=== PATIENT | female | born 1950 | race Caucasian/White ===

== ENCOUNTER 2024-04-24 06:06 | Inpatient (IN) | payer BC, SELFPAY ==
[2024-04-24] VITALS (20 sets, daily range): BP systolic 103–158; BP diastolic 52–113; BMI 29.6; BMI 30.6
--- NOTE | 2024-04-24 03:40 | ED.GENMED ---
History of Present Illness
<Yamilka Allen DO - Last Filed: 04/24/24 06:12>
General
Chief Complaint: Abdominal Pain
Time Seen by Provider: 04/24/24 03:18
<DERICK Victor (Lenka) - Last Filed: 04/24/24 03:58>
General
Source: patient and spouse
Exam Limitations: none
Nursing documentation reviewed up to this point in time: agreed with
History of Present Illness
History of Present Illness:
Pt is a 73 yo female with PMHx of IDDM, hypothyroidism, breast cancer, HTN, GERD who presents to the ED with sudden onset mid-abdominal pain since 'dinner time' on 04/23/24, about 8 hours. Pt reports right around the time she was eating dinner she
developed sudden severe sharp abdominal pain that she localizes to her mid-abdomen. It radiates to all four quadrants and is constant in nature. The pain is unchanged with changes in position. She developed nausea and NBNB emesis. Reports that her
stools have been soft and formed, dark brown all day. No constipation or diarrhea. She denies chest pain, esophageal burning, back pain, shoulder pain, dyspnea, pelvic pain.
Hx of 2 C-sections in 1979's
Hx of panniculectomy
Hx of back surgery 11/2023 - controlled with tylenol and THC gummies
Social alcohol use. No smoking
No recent travel
No sick contacts
No new foods
Past History
<DERICK Victor (Lenka) - Last Filed: 04/24/24 03:58>
Past History
ED Past Medical History: Cancer (R breast), GERD, HTN, IDDM and Hypothyroidism
ED Past Surgical History: (1981 and 1982), Orthopedic (back (11/2023), shoulder, L foot (pin in 12/2005)) and Other (Breast cancer removal)
Social History
Tobacco: Non-smoker
Alcohol: Occasional
Drug: Marijuana (medical THC gummies)
Personal:
Living: with family
Phy Exam
<DERICK Victor (Lenka) - Last Filed: 04/24/24 03:58>
General Physical Exam
General Presentation: moderate distress (pt anxious, restless, visibly uncomfortable in bed)
General age: appears stated age
General Skin: warm and dry
General Habitus: obese
General Mental: anxious
Cardiovascular Exam
Cardiovascular Exam: regular rate/rhythm, no edema and tachycardia
Pulmonary Exam
Pulmonary Exam: lungs clear, no respiratory distress, no rales, no rhonchi, no wheezing and no cough
Gastrointestinal Exam
Gastrointestinal Exam: normal bowel sounds, soft, non distended, guarding (all 4 quadrants, worse in upper quadrants), tender and other
Palpation: generalized: Moderate tenderness (all 4 quadrants)
Psychiatric Exam
Psychiatric Exam: anxious
Course
<Yamilka Allen DO - Last Filed: 04/24/24 06:12>
Orders/Labs/Results
Orders:
Orders
04/24/24 03:32
IV Insert/Care/Rem.- Treatment PRN
04/24/24 03:34
Complete Blood Count/With Diff Urgent
Comprehensive Metabolic Panel Urgent
Lipase Urgent
04/24/24 03:37
Urinalysis Reflex To Culture Urgent
04/24/24 03:42
Lactic Acid Urgent
04/24/24 03:43
0.9% Sodium Chloride 1000 ml [Nss] 1,000 ml IV BOLUS
HYDROmorphone [Dilaudid] 0.5 mg IV NOW STA
Ondansetron Injectable [Zofran] 4 mg IV NOW STA
04/24/24 04:11
CT Abd/pelvis W Iv Cont Urgent
Comment:
Reason For Exam: severe gen abd pain, N/V
04/24/24 04:18
0.9% Sodium Chloride 1000 ml [Nss] 1,000 ml IV BOLUS
04/24/24 04:21
Electrocardiogram (*1) Urgent
Reason for Study: Abdominal Pain
EKG- Treatment ONCE
04/24/24 04:22
HYDROmorphone [Dilaudid] 0.5 mg IV NOW STA
Ondansetron Injectable [Zofran] 4 mg IV NOW STA
04/24/24 05:44
CR Chest Portable - 1 View Urgent
Comment:
Reason For Exam: acute SOB, hypoxia
Reason Study Needs to be Portable: Patient Unstable
04/24/24 05:53
Admit/Transfer Patient As Directed
Co-Sign Provider:
Level of Care: Inpatient admission
Assign to:: IMU- Intermediate Care
Physician / Group: htay
Diagnosis: abdominal pain plus nausea and NBNB emesis,SIRS picture,Anion gap MA
Reason for Hospitalization: abdominal pain plus nausea and NBNB emesis,SIRS picture,Anion gap MA
Expected length of stay greater than two midnights?: Yes
ELOS- Estimated Length of Stay in days: 3
I certify the patient meets the requirements for IP care: Yes
Piperacillin/Tazo 3.375 Gram [Zosyn] 3.375 gram in 50 ml IV NOW
04/24/24 05:58
Code Status As Directed
Resuscitation Status: Full Code
04/24/24 07:15
Lactic Acid Urgent
Abnormal Lab Results
04/24/24 04/24/24
03:34 03:42
WBC 11.0 H 10^3/uL
(4.8-10.8)
RBC 3.69 L 10^6/uL
(4.20-5.40)
Hgb 11.7 L g/dL
(12.0-16.0)
Hct 33.7 L %
(37.0-47.0)
MCH 31.7 H pg
(27.0-31.0)
MPV 11.0 H fL
(7.4-10.4)
Abs Immat Gran (auto) 0.1 H 10^3/uL
(0-0.05)
Absolute Neuts (auto) 9.3 H 10^3/uL
(1.4-6.5)
Immature Gran % 0.7 H %
(0-0.5)
Neutrophils % 84.4 H %
(42.2-75.2)
Lymphocytes % 11.5 L %
(20.5-51.1)
Carbon Dioxide 17 L mmol/L
(22-30)
BUN 19 H mg/dl
(7-17)
Creatinine 1.1 H mg/dL
(0.6-1.0)
Glucose 329 H mg/dl
(70-99)
Lactic Acid 5.6 H* mmol/L
(0.7-2.0)
Calcium 10.6 H mg/dl
(8.4-10.2)
AST 42 H U/L
(14-36)
04/24/24 03:34
04/24/24 03:34
Vital Signs
Initial and Last Documented VS:
Initial Vital Signs
Temp Pulse Resp BP Pulse Ox
98.2 F 112 28 150/70 98
04/24/24 03:13 04/24/24 03:13 04/24/24 03:13 04/24/24 03:13 04/24/24 03:13
Last Documented Vital Signs
Temp Pulse Resp BP Pulse Ox
98.2 F 107 17 150/65 93
04/24/24 03:13 04/24/24 04:30 04/24/24 04:30 04/24/24 04:00 04/24/24 04:30
<Kimberli Souza (Lenka), DERICK - Last Filed: 04/24/24 03:58>
Orders/Labs/Results
Orders:
Orders
04/24/24 03:32
IV Insert/Care/Rem.- Treatment PRN
04/24/24 03:34
Complete Blood Count/With Diff Urgent
Comprehensive Metabolic Panel Urgent
Lipase Urgent
04/24/24 03:37
Urinalysis Reflex To Culture Urgent
04/24/24 03:42
Lactic Acid Urgent
04/24/24 03:43
0.9% Sodium Chloride 1000 ml [Nss] 1,000 ml IV BOLUS
HYDROmorphone [Dilaudid] 0.5 mg IV NOW STA
Ondansetron Injectable [Zofran] 4 mg IV NOW STA
04/24/24 04:11
CT Abd/pelvis W Iv Cont Urgent
Comment:
Reason For Exam: severe gen abd pain, N/V
04/24/24 04:18
0.9% Sodium Chloride 1000 ml [Nss] 1,000 ml IV BOLUS
04/24/24 04:21
Electrocardiogram (*1) Urgent
Reason for Study: Abdominal Pain
EKG- Treatment ONCE
04/24/24 04:22
HYDROmorphone [Dilaudid] 0.5 mg IV NOW STA
Ondansetron Injectable [Zofran] 4 mg IV NOW STA
04/24/24 05:44
CR Chest Portable - 1 View Urgent
Comment:
Reason For Exam: acute SOB, hypoxia
Reason Study Needs to be Portable: Patient Unstable
04/24/24 05:53
Admit/Transfer Patient As Directed
Co-Sign Provider:
Level of Care: Inpatient admission
Assign to:: IMU- Intermediate Care
Physician / Group: htay
Diagnosis: abdominal pain plus nausea and NBNB emesis,SIRS picture,Anion gap MA
Reason for Hospitalization: abdominal pain plus nausea and NBNB emesis,SIRS picture,Anion gap MA
Expected length of stay greater than two midnights?: Yes
ELOS- Estimated Length of Stay in days: 3
I certify the patient meets the requirements for IP care: Yes
Piperacillin/Tazo 3.375 Gram [Zosyn] 3.375 gram in 50 ml IV NOW
04/24/24 05:58
Code Status As Directed
Resuscitation Status: Full Code
04/24/24 07:15
Lactic Acid Urgent
Abnormal Lab Results
04/24/24 04/24/24
03:34 03:42
WBC 11.0 H 10^3/uL
(4.8-10.8)
RBC 3.69 L 10^6/uL
(4.20-5.40)
Hgb 11.7 L g/dL
(12.0-16.0)
Hct 33.7 L %
(37.0-47.0)
MCH 31.7 H pg
(27.0-31.0)
MPV 11.0 H fL
(7.4-10.4)
Abs Immat Gran (auto) 0.1 H 10^3/uL
(0-0.05)
Absolute Neuts (auto) 9.3 H 10^3/uL
(1.4-6.5)
Immature Gran % 0.7 H %
(0-0.5)
Neutrophils % 84.4 H %
(42.2-75.2)
Lymphocytes % 11.5 L %
(20.5-51.1)
Carbon Dioxide 17 L mmol/L
(22-30)
BUN 19 H mg/dl
(7-17)
Creatinine 1.1 H mg/dL
(0.6-1.0)
Glucose 329 H mg/dl
(70-99)
Lactic Acid 5.6 H* mmol/L
(0.7-2.0)
Calcium 10.6 H mg/dl
(8.4-10.2)
AST 42 H U/L
(14-36)
04/24/24 03:34
04/24/24 03:34
Vital Signs
Initial and Last Documented VS:
Initial Vital Signs
Temp Pulse Resp BP Pulse Ox
98.2 F 112 28 150/70 98
04/24/24 03:13 04/24/24 03:13 04/24/24 03:13 04/24/24 03:13 04/24/24 03:13
Last Documented Vital Signs
Temp Pulse Resp BP Pulse Ox
98.2 F 107 17 150/65 93
04/24/24 03:13 04/24/24 04:30 04/24/24 04:30 04/24/24 04:00 04/24/24 04:30
<DERICK Victor (Lenka) - Last Filed: 04/24/24 03:58>
MDM/Problems Addressed
Differential Diagnosis Includes:
73 yo female with PMHx of IDDM, hypothyroidism, breast cancer, HTN, GERD presenting with sudden onset mid-abdominal pain x 8 hours. Pt reports right around the time she was eating dinner she developed sudden severe sharp abdominal pain that she
localizes to her mid-abdomen. It radiates to all four quadrants and is constant in nature. The pain is unchanged with changes in position. She developed nausea and NBNB emesis. Reports that her stools have been soft and formed, dark brown all day.
No constipation or diarrhea. She denies chest pain, esophageal burning, back pain, shoulder pain, dyspnea, pelvic pain.
On exam she is more tender in the epigastric region and the upper quadrants.
Vitals: tachycardic, tachypneic, hypertensive
DDx: pancreatitis, cholecystitis, appendicitis
Due to epigastric location of pain, sudden onset with N/V, and onset around mealtime, there is concern for pancreatitis. Appendicitis is less likely due to diffuse radiation of pain and pain located epigastrically/periumbilically.
Will first manage nausea with zofran and pain, then plan for CTAP.
Awaiting CBC, CMP, lactic.
<Yamilka Allen DO - Last Filed: 04/24/24 06:12>
*Radiology
Radiology exam reviewed: preliminary read by ED provider (Chest x-ray shows mild cardiomegaly, mild interstitial edema.) and radiology read reviewed
*Pulse Oximetry
Patient hypoxic: yes
*EKG
Interpreted by ED Provider?: Yes
Comparison EKG: changes noted (Nonspecific ST-T wave abnormalities new compared to previous EKG January 2023. Heart rate has increased from 90 to now 110)
Rate: tachycardiac
Rhythm: sinus
[place]: normal axis
Interval: normal interval
QRS Pattern: normal QRS
Ischemia: non-specific ST changes
*Printer Slotter Operator Interpretation
Rate: tachycardiac
Interpretation: abnormal
Rhythm: sinus
*Critical Care Note
Total Time (30-74mins, 75-104mins- exclusive of procedures): 30
comment:
Critical care statement: A total of 30 minutes of critical care time was provided for this patient. This includes management of unstable vital signs, evaluation of the patient at bedside, reviewing the patient's pertinent medical records, discussion
with consultants, review of old EKGs and review of pertinent medical records. This time with separate from time utilized to perform the aforementioned documented procedures
<DERICK Victor (Lenka) - Last Filed: 04/24/24 03:58>
*Critical Care Note
Total Time (30-74mins, 75-104mins- exclusive of procedures): Not Applicable
ED Attending Note
<Yamilka Allen DO - Last Filed: 04/24/24 06:12>
ED Attending Note
Patient seen and examined by attending physician: Yes
I performed the substantive portion of visit, reviewed & personally made and approve the management plan that is documented in note by myself or BARBARA.: Yes
ED Attending Note:
This is a 73-year-old woman who resides at home with her . She has history of insulin requiring diabetes, hypothyroidism, hypertension, lumbar disc disease, remote history of breast cancer she presents with persistent severe epigastric to
mid abdominal pain that began yesterday afternoon, evening prior to dinner. Pain has been constant and persistent/severe since yesterday early evening accompanied with nausea, multiple episodes of nonbloody vomitus. She has been passing soft
stools throughout the evening, she denies diarrhea. No fever no chills, no back pain no chest pain. No history of similar episodes of pain. No definitive aggravating or relieving factors.
Prior abdominal surgeries include 2 previous C-sections, abdominoplasty.
She states blood sugars are generally well-controlled but have been somewhat higher throughout the day today.
GENERAL: 73-year-old woman appears her stated age, awake and alert, appears in moderate distress related to pain. Mildly anxious, mildly restless but cooperative. is accompanying.
EYE: anicteric
NECK: Supple, nontender, no meningismus, no significant adenopathy.
ENT: oral mucosa is mildly dry. No rhinorrhea.
CARDIAC: Regular rate and rhythm. no murmur.
LUNGS: Clear breath sounds bilaterally, no acute respiratory distress, no wheezes/rales/rhonchi
ABDOMEN: Soft, mildly distended, moderate generalized tenderness with exquisite tenderness epigastric as well as right upper quadrant with local guarding of epigastric and right upper quadrant, positive rebound. No rigidity.
NEUROLOGICAL: Alert and oriented x3, no focal neuro deficits. Ambulatory with slow steady gait utilizing cane.
SKIN: Warm and dry, normal color, skin intact. No rash.
MUSCULOSKELETAL: No C/C/E. peripheral pulses are full and equal b/l. No palpable tenderness.
PSYCH: Mildly anxious related to pain. Cooperative.
Concern for acute surgical abdomen, acute cholecystitis, acute pancreatitis, small bowel obstruction, ischemic bowel, perforated viscus, gastroenteritis.
Will medicate for pain and nausea with IV Dilaudid and Zofran, initiate IV fluids.
Labs are pending including lactic acid.
Will plan for CT abdomen pelvis with IV contrast.
04/24/2024 0547 AM
Labs are remarkable for mildly elevated white blood cell count of 11. Chemistry showed moderately elevated glucose of 300. Minimal metabolic acidosis, mildly elevated creatinine of 1.1. Minimally elevated AST of 42, otherwise LFTs within normal
limits and lipase is normal as well.
Lactic acid however significantly elevated at 5.6.
After 2 L of IV fluid, 2 doses of IV Dilaudid and Zofran patient is much more comfortable, resting comfortably with no further nausea or vomiting.
She does continue with mild tenderness right upper quadrant, epigastric region otherwise abdomen is soft and nontender.
CAT scan shows cirrhotic liver with small amount of ascites. Wall thickening of the stomach and right colon which may be portal gastropathy versus gastritis/colitis.
Atrophic pancreas.
The gallbladder is distended with small gallstones near the neck of the gallbladder but no gross gallbladder inflammation.
Patient does have history of fatty liver disease but no history of cirrhosis, no history of alcohol abuse and no prior history of pancreatitis.
I discussed CAT scan findings directly with [facility] radiologist. There is no definitive evidence of ischemic bowel on CAT scan.
With significant upper abdominal pain, recurrent vomiting this could certainly be gastritis/colitis in nature but there is also some concern for acute cholecystitis.
Although marked improvement in abdominal pain patient now was noted to be moderately tachypneic, hypoxic requiring nasal cannula oxygen and noted to have some bibasilar rales. I am concerned for an element of acute CHF, iatrogenic from IV fluid's.
Will check portable chest x-ray and initiate IV Zosyn for potential cholecystitis.
She remains hemodynamically stable.
Will admit to hospitalist service.
<DERICK Victor (Lenka) - Last Filed: 04/24/24 03:58>
-
Portions of this chart may have been created with voice recognition software.� Occasional wrong word or��sound alike� substitutions may have occurred due to the inherent limitations of voice recognition software.
Discharge Plan
Departure
Patient Disposition: Admit
Date of Disposition: 04/24/24
Time of Disposition: 05:45
Admit to: IMU
Admit to doctor: Britatnyy
Presentation/result/management discussed w/ accepting MD/DO: Hospitalist
Condition: Serious
Discharge Problem:
acute gastritis/colitis, severe lactic acidosis, cholelithiasis r/o cholecystitis, Acute CHF, Acute respiratory failure with hypoxia
Interventions
Interventions:
*Risk Screen - Suicide Last Done: 04/24/24 03:13
*General Assessment Last Done: 04/24/24 03:24
*Neglect/Abuse Screening Last Done: 04/24/24 03:13
ED- Fall Risk Assessment Last Done: 04/24/24 03:24
*ED COVID-19 Vaccine History Last Done: 04/24/24 03:30
XX-Ldlmyx-Lljbhsepfw Assessment Last Done: 04/24/24 03:24
[2024-04-24 03:45] LABS: % Basophils 0.5 % (0-2); % Immature Granulocytes 0.7 % (0-0.5); % Lymphocytes 11.5 % (20.5-51.1); % Monocytes 2.9 % (1.7-9.3); % Neutrophils 84.4 % (42.2-75.2); Absolute Basophils 0.1 10^3/uL (0-0.2); Absolute Immature Granulocytes 0.1 10^3/uL (0-0.05); Absolute Lymphocytes 1.3 10^3/uL (1.2-3.4); Absolute Monocytes 0.3 10^3/uL (0.1-0.6); Absolute Neutrophils 9.3 10^3/uL (1.4-6.5); Hematocrit 33.7 % (37.0-47.0); Hemoglobin 11.7 g/dL (12.0-16.0); Mean Corp Hgb Conc. 34.7 g/dL (33.0-37.0); Mean Corpuscular Hgb 31.7 pg (27.0-31.0); Mean Corpuscular Volume 91.3 fL (81.0-99.0); Nucleated Red Blood Cells % 0 %; Platelet Count 207 10^3/uL (130-400); Red Blood Cell Count 3.69 10^6/uL (4.20-5.40); Red Cell Dist. Width 14.4 % (11.5-14.5)
[2024-04-24] MEDS: NSS 1000 IV ×2 (03:48→04:25)
[2024-04-24] MEDS: ZOFRAN 4 MG IV ×2 (03:51→04:26)
[2024-04-24] MEDS: DILAUDID 0.5 MG IV ×3 (03:53→18:27)
[2024-04-24 04:03] LABS: AST (SGOT) 42 U/L (14-36); Albumin 4.7 g/dl (3.5-5.0); Alkaline Phosphatase 116 U/L (38-126); Blood Urea Nitrogen 19 mg/dl (7-17); Calcium 10.6 mg/dl (8.4-10.2); Carbon Dioxide 17 mmol/L (22-30); Chloride 107 mmol/L (98-107); Estimated Creatinine Clearance 46 ml/min; Glucose 329 mg/dl (70-99); Lipase 103 U/L (23-300); Potassium 4.6 mmol/L (3.5-5.1); Sodium 140 mmol/L (135-145); Total Protein 7.9 g/dl (6.3-8.2); eGFR 53.72
[2024-04-24 04:12] LABS: ALT (SGPT) 32 U/L (0-35)
[2024-04-24 04:17] LABS: Lactic Acid 5.6 mmol/L (0.7-2.0)
--- NOTE | 2024-04-24 04:38 | HPS.HSE ---
Family Physician
-
Family Physician: Felix Torres
Chief Complaint
-
acute abdominal pain w N/V
History of Present Illness
HPI
73F HX IDDM, hypothyroidism, breast cancer, HTN, GERD sen at ER for evaluation of acute abdominal pain:
- sudden onset while she was eating dinner
- localized mid-abdominal pain for last 10 Hrs
- pain is constant and radiates to all four quadrants
- no change in pain with position.
- associated with nausea and NBNB emesis.
- stools have been soft and formed, dark brown all day.
- denied No constipation or diarrhea.
ROS:
- denies cough, fever, dysuria , chest pain, esophageal burning, back pain, shoulder pain, dyspnea, pelvic pain and constipation
Medical History
Past Medical History
Past Medical History: Reports Cancer (Rt Breast s/p removal ), GERD, HTN and IDDM
Past Surgical History: Reports Other
Additional Past Surgical History:
(1981 and 1982)
Orthopedic (back (11/2023), shoulder, L foot (pin in 12/2005)
Breast cancer removal
Social History
Tobacco: Non-smoker
Alcohol: Occasional
Drug: Marijuana (on medical THC gummies)
Personal:
Living: With Family
Family History
Family History: Not pertinent
Allergies / Home Medications
Allergies reflects when Allergies were last updated in [employer]
Home Medications with original date entered in [employer] ([employer])
Allergy/Medication List:
Allergies
Allergy/AdvReac Type Severity Reaction Status Date / Time
cephalexin monohydrate Allergy Rash Verified 04/24/24 03:17
[From Keflex]
Sulfa (Sulfonamide Allergy Rash Verified 04/24/24 03:17
Antibiotics)
adhesive tape Allergy Rash Uncoded 04/24/24 03:17
Home Medications
Levimir 28 units QPM 04/17/13
Victoza 1.8 mg .IN A.M. 04/17/13
alprazolam 0.5 mg tablet 1 mg PO QPM 04/17/13
amlodipine 10 mg tablet 10 mg PO QPM 04/17/13
esomeprazole magnesium 40 mg capsule,delayed release (Nexium) 40 mg PO DAILY 04/17/13
etanercept 50 mg/mL (1 mL) subcutaneous syringe (Enbrel) 50 mg SQ WEEKLY 04/17/13
hydrochlorothiazide 12.5 mg capsule 12.5 mg PO DAILY 04/17/13
levothyroxine 50 mcg tablet 50 mcg PO DAILY 04/17/13
metformin 500 mg tablet 500 mg PO QID 04/17/13
nebivolol 10 mg tablet (Bystolic) 20 mg PO DAILY 04/17/13
valsartan 320 mg tablet (Diovan) 320 mg PO QPM 04/17/13
aprepitant 40 mg capsule (Emend) 40 mg PO ONCE PRN once am of surgery 04/30/13
Review of Systems
-
Constitutional: Reports No Symptoms
EENT: Reports No Symptoms
Respiratory: Reports No Symptoms
Cardiac: Reports No Symptoms
Abdomen/GI: Reports See HPI, Abdominal Pain, Nausea and Vomiting; Denies Constipated, Bloody Stools or Black Stools
: Reports No Symptoms; Denies Frequency or Urgency
Musculoskeletal: Reports No Symptoms
Skin: Reports No Symptoms
Neurological: Reports No Symptoms
Endocrine: Reports No Symptoms
Hematologic/Lymphatic: Reports No Symptoms
Psych: Reports No Symptoms
Physical Exam
Vital Signs
Vital Signs
Temp Pulse Resp BP Pulse Ox
98.2 F 107 17 150/65 93
04/24/24 03:13 04/24/24 04:30 04/24/24 04:30 04/24/24 04:00 04/24/24 04:30
Physical Exam
General: Appears in Distress (moderately distress due to abdominal pain ); No Comfortable (restless )
HEENT: Anicteric; No Moist mucous membranes (dry)
Respiratory: Clear
Cardiac: S1/S2 and Tachycardia
Breast: Deferred by me
GI: Soft, Tender (generalized tenderness plus exquisite tenderness epigastric + right upper quadrant) and Other (local guarding of epigastric and right upper quadrant, positive rebound); No Non Distended (mildly distended )
Genito-urinary: Deferred by me
Musculoskeletal: No Edema
Skin: Warm and Dry
Neuro: AO x 3 and Nonfocal/grossly intact
Psych: Anxious (due to pain ) and Other (appropriate )
Laboratory Results
-
04/24/24 03:34
04/24/24 03:34
Laboratory Results
Lactic Acid 5.6 mmol/L (0.7-2.0) H* 04/24/24 03:42
Total Bilirubin 1.0 mg/dl (0.2-1.3) 04/24/24 03:34
AST 42 U/L (14-36) H 04/24/24 03:34
ALT 32 U/L (0-35) 04/24/24 03:34
Alkaline Phosphatase 116 U/L (38-126) 04/24/24 03:34
Lipase Cancelled 04/24/24 03:42
Data Reviewed
-
CT Scan: Other (pending )
Medical Tests (Nuc Med, Echo, EKG etc): Report Reviewed by me
Lab Data: Labs Reviewed by me
Impression/Plan
-
Reviewed VS: Afebrile ST @ 112 BP 150/70 RR 28
Data
WCC 11
Hgb 11.7
CO2 17
BUN 19
Cr 1.1
eGFR 53
Anion Gap metabolic acidosis 16
LA 5.6
Lipase [address] AP w IV contrast: Prelim read
- Radiologist does not suspect ischemic bowel.
- cirrhotic liver, small l ascites
- wall thickening of stomach and R colon DDX: Portal gastropathy, portal colopathy vs. colitis/gastritis
- small GS near NoGB
Pending UA
NO PRIOR hospitalist admission:
ASSESSMENT & PLAN
Pending Rx reconciliation
Abrupt onset of localized mid abdominal pain plus nausea and NBNB emesis
SIRS picture suspect source is intraabdominal origin with Anion gap MA (16) suspect lactate acidosis
DDX: acute colitis /gastritis, Portal gastropathy, portal colopathy
- NPO
- LR IVF
- Empiric IV Zosyn
- Trend AG MA, HCO3
- GI consult
CT suggest cirrhotic liver
HX fatty liver but denied known HX Cirrhosis
Small GS near NoGB
Unremarkable LFTs
- NPO and trend LFts
- await GI input
Acute dyspnea with O2 needs s/p 2 L NS at ER
Suspect expanded volume
- IV Lasix 20mg once at ER
- daily wt and IOS
Hyperglycemia due to acute intraabdominal process
IDDM
- cont 50 % of Levemir that is 14units qpm due to NPO
- Held Metformin AG MA
- add ISS low
Suspect element of TESSIE due to suspect SIRS
HX Essential HTN
- IVF
- Held Valsartan
- Held HCTZ
- Trend Cr and eGFR
Known HX:
S/P Rt Breast CA removal
GERD
Hypothyroidism; on LT4
DVT Px: SCD
Code: Full
IMU
[2024-04-24] MEDS: ZOSYN 50 IV ×4 (06:25→23:28)
[2024-04-24] MEDS: LASIX 20 MG IV (06:28)
[2024-04-24 07:28] LABS: Lactic Acid 4.7 mmol/L (0.7-2.0)
--- NOTE | 2024-04-24 08:10 | W.PN.HOSP.TC ---
Addendum entered and electronically signed by Madi Morales MD 04/24/24 16:36:
Non-billable note
I saw and evaluated the patient. I reviewed the resident�s note and agree with findings and plan as documented in the resident�s note.
Further comments as below
1. Acute diarrhea - possible infection vs ischemic SB disease. if have further diarrhea episode - collect stool culture for bacterial culture, recent abx exposure and will need cdiff check if develops persistent diarrhea
2. Lactic acidosis - reason unclear, volume depletion? vs ischemia. monitor on IVF
3. Gastritis - on CT a/p , also have cirrohosis by imaging standard , portal gatropathy vs gastritis possibilty, GI to evaluate for further need of EGD
4. Cirrhosis - normal Plt count, f/u INR, LFt in morning,. further testing per GI.
5. T2DM - maintain on ISS
Original Note:
Today's Communication/Plan
-
Patient downgrade to telemetry. Continue managing DM type I and watch for any nausea, vomiting and abdominal pain.
Assessment / Plan
Assessment / Plan
73F with a history IDDM, hypothyroidism, breast cancer, HTN, GERD was at ER for evaluation of acute abdominal pain. Patient had a sudden onset of pain while she was eating dinner. The pain was localized to the mid abdomen and has lasted for 10 Hrs.
The pain has been constant and radiates to all four quadrants. The pain does not change with positioning and is associated with nausea and vomiting. Patient says that she does not have any constipation or diarrhea and that her stools have been soft
and formed, dark brown all day.
Gastroenteritis from unknown etiology
-Lactate acidosis, trend lactate levels
-Patient can tolerate Liquid Diet
-Empiric IV Zosyn, 3.375 gram in 50 mls @ 100 mls/hr, Q6 LOIS IV
-Trend AG MA, HCO3
-GI Consulted, Input appreciated
-Stool culture route, and Stool for WBC ordered
-Improving, downgraded to telemetry from ICU
Gallstone
-rend LFTs
-GI Input appreciated
Hyperglycemia due to acute intraabdominal process
IDDM
- Lantus 14 units given, Novolog 15 min before meal if can tolerate liquid diet
- Held Metformin AG MA
- Monitor Blood glucose levels
Acute Dyspnea with O2
-IV Lasix 20mg
-daily wt and IOS
-Monitor O2 levels
TESSIE-
-IVF
-Hold Valsartan
-Hold HCTZ
-Trend CR and eGFR
Anticipated Discharge: 24 - 48 hours
Subjective/Interval History
-
Date of Service: April 24, 2024
Patient has been feeling much better and says she does not have any more abdominal pain, nausea, vomiting, or diarrhea.
Objective Data
-
Labs:
Laboratory Results
04/24/24
03:34
WBC 11.0 H
Hgb 11.7 L
Hct 33.7 L
Plt Count 207
Sodium 140
Potassium 4.6
Chloride 107
Carbon Dioxide 17 L
BUN 19 H
Creatinine 1.1 H
Glucose 329 H
Calcium 10.6 H
Total Bilirubin 1.0
AST 42 H
ALT 32
Alkaline Phosphatase 116
Vital Signs:
Vital Signs
Temp Pulse Resp BP Pulse Ox
98.2 F 85 18 133/69 93
04/24/24 03:13 04/24/24 08:02 04/24/24 08:02 04/24/24 06:30 04/24/24 08:02
Review of Systems
-
History Source: Patient and Family
Constitutional: Denies Fever, Fatigue, Chills or Weakness
Respiratory: Denies Cough, Trouble Breathing or Wheezing
Cardiac: Denies Chest Pain, Diaphoresis or Palpitations
Abdomen/GI: Denies Abdominal Pain, Nausea, Vomiting, Diarrhea or Constipated
Musculoskeletal: Denies Joint Pain, Joint Swelling or Muscle Pain
Skin: Denies Itching or Rash
Neuro: Denies Dizzy, Headache, Weakness or Numbness
Endocrine: Denies Polyuria or Excessive Thirst
Physical Exam
-
General: Well Developed, Well Nourished and No Apparent Distress
Respiratory: Clear to Auscultation and Non Labored Respirations
Cardiac: Regular Rhythm and S1/S2
GI: Distended
Musculoskeletal: No Clubbing, No Cyanosis and No Edema
Skin: Warm and Dry
Neuro: Awake, Alert, Oriented, AO x 3 and No Motor Deficits
Psych: Calm
Data Reviewed
-
CT Scan: Report Reviewed by me, Discussed with Physician, Discussed with Patient and Discussed with Family
Labs: Labs Reviewed by me, Discussed with Physician, Discussed with Patient and Discussed with Family
[2024-04-24] MEDS: LR 1000 IV (08:57)
[2024-04-24] MEDS: PROTONIX IV 40 MG IV (08:57)
[2024-04-24] MEDS: NSS (PRESERVATIVE FREE) 10 ML IV (08:57)
[2024-04-24 09:04] LABS: Glucose - Point of Care 326 mg/dl (70-99)
[2024-04-24 09:31] LABS: Urine Albumin Negative (Neg - Trace); Urine Bilirubin Negative (Negative); Urine Character Clear (Clear); Urine Color Yellow; Urine Glucose 3+ (Negative); Urine Ketone Negative (Negative); Urine Leukocyte Negative (Negative); Urine Nitrite Negative (Negative); Urine Occult Blood Negative (Negative); Urine Urobilinogen Negative (Neg - 1+)
[2024-04-24] MEDS: NOVOLOG FLEXPEN-LOW RESISTANCE 4 UNITS SC (09:52)
--- NOTE | 2024-04-24 10:06 | PTCARENOTE ---
adm to ICU as IMU overflow room 3360, settled in room, to BSC, voided large amount. complete CHG bath. reviewed plan of care. seen by several residents, see admission documentation.
[2024-04-24 11:54] LABS: Glucose - Point of Care 228 mg/dl (70-99)
[2024-04-24 12:00] LABS: Glycohemoglobin (HgbA1c) 6.1 % (4.0-5.6)
--- NOTE | 2024-04-24 12:00 | CON.GI ---
Addendum entered and electronically signed by Ryann Neri MD 04/24/24 16:49:
I saw and examined the patient.
The HUMAN INTELLIGENCE or PA's note was reviewed and I agree with the note.
Comment: 73-year-old female with history of breast cancer, diabetes, GERD presenting with mid abdominal discomfort that started yesterday evening, worsened after eating salad from [employer]. She reports that the pain was sharp in the mid abdomen around
the umbilicus, she had episodes of nausea, vomiting and multiple soft nonbloody bowel movements. She took 1 Imodium at midnight. She continued to have abdominal pain and came to the emergency room, in the ER, she was noted to have mild
leukocytosis, LFTs unremarkable except AST mildly elevated at 42, lactic acid elevated at 5.[address] scan of the abdomen and pelvis with IV contrast showing layering gallstones, free fluid in the abdomen and also mild thickening of
the gastric wall.
Patient currently feels well, denies any abdominal pain, tolerating full liquid diet. No nausea or vomiting and no bowel movement since admission. Previously she would have some mild constipation but nothing on a regular basis. No NSAID use.
Last colonoscopy in 2021, 4 mm ascending colon tubular adenoma removed, recommendation was to follow-up in 5 years. Recent Bactrim use for toe infection.
-Sudden onset mid abdominal discomfort of unclear etiology associated with nausea, vomiting and diarrhea
Symptoms currently resolved
? Rule out gastroenteritis, ? Foodborne versus other
Currently on diabetic diet and feeling well.
No upper GI symptoms.
If no further nausea/vomiting/pain, continue on diabetic diet and can follow-up outpatient for an upper endoscopy with Dr. Pink for possible gastric wall thickening noted on CAT scan.
-If diarrhea, will check stool studies for infection including cultures, C. difficile, Cryptosporidium/Giardia/norovirus.
-Monitor LFTs
Will follow
Original Note:
Consultation
-
Date/Time Consultation Requested: 04/24/24 0815
Date/Time Consultation Performed: 04/24/24 1200
Requesting Provider: Ayaan Lara MD
Performing Provider: LORI Malik, Ryann Neri MD
Reason for Consultation: abdominal pain
Medical History
Chief Complaint / HPI
Chief Complaint: abdominal pain
History of Present Illness:
Pt is a 73yo with hx breast CA, HTN, GERD, IDDM, prior LE stent on Plavix hypothyroidism presents with onset of abdominal pain since 04/23. On admission noted with leukocytosis, elevated lactate up to 5.6 on admission creat 1.[address] with noted
ascites and fluid in non distended SB loose and colon suggesting gastroenteritis. There was also gastric wall thickening and cholelithiasis. In reviewing with patient she was taking Bactrim over last week for ? toe infection. She reports sudden
onset of abdominal pain starting prior to dinner. Symptoms worsened after dinner with some nausea, vomiting and some diarrhea. She has chronic GERD on Protonix daily well controlled.
Pt denies odynophagia, dysphagia, constipation or bleeding. hx colonoscopy 2021 with non bleeding external hemorrhoids 4 mm polyp AC otherwise normal -- Bx TA.
Past Medical History
Past Medical History: Cancer (breast CA with lumpectomy with node resection and radiation ), GERD, HTN, Hypothyroidism and IDDM
Past Surgical History: , Orthopedic (back surgery 11/2023 ) and Other (panniculectomy, breast tumor removal, right lower ext stent )
Social History
Tobacco: Non-Smoker
Alcohol: None
Drug: Marijuana (restarted yesterday )
Personal:
Living: With Family
Employment: Retired
Family History
Family History: Other
Allergies / Home Medications
Allergy/AdvReac Type Severity Reaction Status Date / Time
cephalexin monohydrate Allergy Rash Verified 04/24/24 03:17
[From Keflex]
Sulfa (Sulfonamide Allergy Rash Verified 04/24/24 03:17
Antibiotics)
adhesive tape Allergy Rash Uncoded 04/24/24 03:17
�Medication �Instructions �Recorded
alprazolam 0.5 mg tablet 1 mg PO HS Mental Health/Anxiety 04/17/13
amlodipine 10 mg tablet 10 mg PO QPM Blood Pressure 04/17/13
etanercept 50 mg/mL (1 mL) 50 mg SQ TU 04/17/13
subcutaneous syringe (Enbrel)
nebivolol 10 mg tablet (Bystolic) 10 mg PO DAILY Blood Pressure 04/17/13
acetaminophen 650 mg 650 mg PO TID Pain 04/24/24
tablet,extended release
aspirin 81 mg tablet,delayed 81 mg PO DAILY Blood Clot 04/24/24
release Prevention/Tx
clopidogrel 75 mg tablet (Plavix) 75 mg PO DAILY Blood Clot 04/24/24
Prevention/Tx
gabapentin 100 mg capsule 200 mg PO BID Pain 04/24/24
hydrochlorothiazide 25 mg tablet 25 mg PO DAILY Fluid 04/24/24
Retention/Swelling
insulin aspart U-100 100 unit/mL 8 sliding scale dose SC AC Diabetes 04/24/24
(3 mL) subcutaneous pen (Novolog
FlexPen U-100 Insulin aspart)
insulin glargine 100 48 unit SC DAILY Diabetes 04/24/24
unit-lixisenatide 33 mcg/mL
subcutaneous pen ([place] 100/33)
levothyroxine 88 mcg tablet 88 mcg PO DAILY Thyroid 04/24/24
(Synthroid)
magnesium oxide 400 mg PO DAILY Electrolyte 04/24/24
Repletion
metformin 500 mg tablet,extended 500 mg PO BID Diabetes 04/24/24
release 24 hr
pantoprazole 40 mg tablet,delayed 40 mg PO DAILY Gastrointestinal 04/24/24
release Issue
sulfamethoxazole 800 1 tab PO BID Infection 04/24/24
mg-trimethoprim 160 mg tablet
(Bactrim DS)
valsartan 160 mg tablet 160 mg PO QPM Blood Pressure 04/24/24
zinc sulfate 50 mg zinc (220 mg) 50 mg PO DAILY Supplement 04/24/24
tablet
Review of Systems
-
History Source: Patient
Constitutional: Reports Weight Loss ( 10 lbs )
EENT: Reports No Symptoms
Respiratory: Reports No Symptoms
Cardiac: Reports No Symptoms
Abdomen/GI: Reports Abdominal Pain, Nausea, Vomiting and Diarrhea
: Reports No Symptoms
Musculoskeletal: Reports No Symptoms
Skin: Reports No Symptoms
Neurological: Reports Weakness
Endocrine: Reports No Symptoms
Hematologic/Lymphatic: Reports No Symptoms
Vital Signs
Temp Pulse Resp BP Pulse Ox
98.6 F 84 30 130/89 96
04/24/24 11:24 04/24/24 10:30 04/24/24 10:30 04/24/24 10:00 04/24/24 10:30
Physical Exam
Exam
General: Well Developed, Well Nourished and No Apparent Distress
HEENT: Normocephalic and Anicteric
Respiratory: Clear
Cardiac: Regular Rhythm
GI: Soft and Non Distended
Musculoskeletal: No Clubbing and No Cyanosis
Skin: Warm and Dry
Neuro: Awake, Alert and AO x 3
Psych: Calm
Results
WBC 11.0 10^3/uL (4.8-10.8) H 04/24/24 03:34
Hgb 11.7 g/dL (12.0-16.0) L 04/24/24 03:34
Hct 33.7 % (37.0-47.0) L 04/24/24 03:34
MCV 91.3 fL (81.0-99.0) 04/24/24 03:34
Plt Count 207 10^3/uL (130-400) 04/24/24 03:34
Absolute Neuts (auto) 9.3 10^3/uL (1.4-6.5) H 04/24/24 03:34
Sodium 140 mmol/L (135-145) 04/24/24 03:34
Potassium 4.6 mmol/L (3.5-5.1) 04/24/24 03:34
Chloride 107 mmol/L (98-107) 04/24/24 03:34
Carbon Dioxide 17 mmol/L (22-30) L 04/24/24 03:34
BUN 19 mg/dl (7-17) H 04/24/24 03:34
Creatinine 1.1 mg/dL (0.6-1.0) H 04/24/24 03:34
Calcium 10.6 mg/dl (8.4-10.2) H 04/24/24 03:34
Total Bilirubin 1.0 mg/dl (0.2-1.3) 04/24/24 03:34
AST 42 U/L (14-36) H 04/24/24 03:34
ALT 32 U/L (0-35) 04/24/24 03:34
Alkaline Phosphatase 116 U/L (38-126) 04/24/24 03:34
Lipase Cancelled 04/24/24 03:42
Diagnostic Image Results:
04/24 CT Abd/pelvis W Iv Cont
1. There is ascites. Is there cirrhosis?
2. There is fluid in nondistended loops of small bowel and in the colon suggesting gastroenteritis. There is also mild thickening of the gastric wall.
3. There is cholelithiasis
Prior GI Procedures:
EGD: none
Colonoscopy: [facility] 08/10 - Non-bleeding external hemorrhoids.
- One 4 mm polyp in the ascending colon, removed with
a jumbo cold forceps. Resected and retrieved.
- The exam was otherwise normal to the cecum.
Assessment / Plan
-
Pt is a 73yo with hx breast CA, HTN, GERD, IDDM, prior LE stent on Plavix hypothyroidism presents with onset of abdominal pain since 04/23. On admission noted with leukocytosis, elevated lactate up to 5.6 on admission creat 1.[address] with noted
ascites and fluid in non distended SB loose and colon suggesting gastroenteritis. There was also gastric wall thickening and cholelithiasis. In reviewing with patient she was taking Bactrim over last week for ? toe infection. She reports sudden
onset of abdominal pain starting prior to dinner. Symptoms worsened after dinner with some nausea, vomiting and some diarrhea. She has chronic GERD on Protonix daily well controlled.
-sudden onset lower abdominal pain with nasuea/vomiting and diarrhea
-CT with gastric wall thickening
-CT with ascites
-elevated lactate level
-TESSIE
-abx prior to admission for toe infection- bactrim
other medical problems:
-hx breast CA with lumpectomy/radiation
LE stent on Plavix
-hypothyroidism
-NIDDM
-GERD
-HTN
-cholelithiasis
PLAN:
etiology of symptoms unclear gastroenteritis, reaction to recent Bactrim, ischemic event vs other --- pt feeling improved now
ok for full liquid lunch if tolerating consider ADA dinner
t/c EGD with gastric thickening
cont abx
Plavix on hold
repeat LFT's in am
monitor stools for recurrent diarrhea if present check stools studies with recent abx
-
-
Thank you for consultation and allowing me to participate in the patient's care. Please call the consulting database administrator GI physician during the after hours with any questions or concerns.
[2024-04-24 12:12] LABS: Lactic Acid 4.4 mmol/L (0.7-2.0)
--- NOTE | 2024-04-24 12:17 | CM ---
CM reviewed medical records. CM met with patient in room. Patient lives independently with in a two story home. Patient has been known to [facility] and would be agreeable to them again. Patient ambulates with a cane,but only relies on it when
negotiating stairs or for longer walks. Patient is active with her PCP. Patient uses [facility] for medication services.
PLAN: [facility]. [facility]
[2024-04-24 12:19] LABS: NT-proBNP 7760 pg/ml
[2024-04-24] MEDS: NOVOLOG FLEXPEN-LOW RESISTANCE 2 UNITS SC (12:30)
[2024-04-24] MEDS: VISBIOME 1 CAP PO (12:34)
--- NOTE | 2024-04-24 13:14 | PTCARENOTE ---
seen by GI, and Dr. Morales. VS remain stable. no pain. IV fluids infuse, repeat lactic noted, will continue to trend per protocol. no distress, resting when undisturbed.
[2024-04-24 16:22] LABS: Lactic Acid 3.7 mmol/L (0.7-2.0)
--- NOTE | 2024-04-24 17:33 | TRANSFER ---
to room 418-01 via wc with all belongings.
[2024-04-24 17:45] LABS: Glucose - Point of Care 191 mg/dl (70-99)
[2024-04-24] MEDS: LANTUS 0.14 UNITS SC (18:17)
[2024-04-24] MEDS: NOVOLOG FLEXPEN-LOW RESISTANCE 1 UNITS SC (18:17)
[2024-04-24] MEDS: XANAX 0.5 MG PO (18:18)
[2024-04-24 20:37] LABS: Lactic Acid 2.3 mmol/L (0.7-2.0)
[2024-04-24 21:34] LABS: Glucose - Point of Care 280 mg/dl (70-99)
[2024-04-25] MEDS: DILAUDID 0.5 MG IV ×2 (00:23→05:38)
[2024-04-25] MEDS: ZOSYN 50 IV ×2 (05:14→11:48)
[2024-04-25 07:37] VITALS: BP 139/74
[2024-04-25 07:50] LABS: Glucose - Point of Care 148 mg/dl (70-99)
[2024-04-25] MEDS: NOVOLOG FLEXPEN-LOW RESISTANCE SC (08:06)
[2024-04-25] MEDS: NSS (PRESERVATIVE FREE) 10 ML IV (08:07)
[2024-04-25] MEDS: VISBIOME 1 CAP PO (08:07)
[2024-04-25] MEDS: PROTONIX IV 40 MG IV (08:07)
[2024-04-25] MEDS: MIRALAX 17 GRAMS PO (08:12)
[2024-04-25 08:24] LABS: INR 1.34; PT 16.7 Sec (11.4-14.6)
[2024-04-25 08:30] LABS: Hematocrit 32.7 % (37.0-47.0); Hemoglobin 11.1 g/dL (12.0-16.0); Mean Corp Hgb Conc. 33.9 g/dL (33.0-37.0); Mean Corpuscular Hgb 31.4 pg (27.0-31.0); Mean Corpuscular Volume 92.6 fL (81.0-99.0); Mean Platelet Volume 11.4 fL (7.4-10.4); Platelet Count 142 10^3/uL (130-400); Red Blood Cell Count 3.53 10^6/uL (4.20-5.40); Red Cell Dist. Width 14.6 % (11.5-14.5); White Blood Cell Count 8.7 10^3/uL (4.8-10.8)
[2024-04-25 09:06] LABS: ALT (SGPT) 29 U/L (0-35); AST (SGOT) 51 U/L (14-36); Alkaline Phosphatase 105 U/L (38-126); Blood Urea Nitrogen 16 mg/dl (7-17); Calcium 9.7 mg/dl (8.4-10.2); Carbon Dioxide 23 mmol/L (22-30); Chloride 106 mmol/L (98-107); Estimated Creatinine Clearance 50 ml/min; Glucose 133 mg/dl (70-99); Potassium 4.3 mmol/L (3.5-5.1); Sodium 137 mmol/L (135-145); Total Bilirubin 1.3 mg/dl (0.2-1.3); Total Protein 7.2 g/dl (6.3-8.2); eGFR 59.86
--- NOTE | 2024-04-25 11:03 | CM ---
Addendum entered by Avril Gusman 04/25/24 13:33:
IMM completed.
Original Note:
Patient seen bedside with spouse.
patient denies home care needs at this time.
Patients spouse will transport home at d/c.
Patient and spouse aware of CM availability should home care needs arise.
Plan: home no needs
--- NOTE | 2024-04-25 11:09 | PN.CDI ---
CDI
- -
CDI:
Physician Documentation Request
Admit Date: 04/24/24 06:06
Dear Doctor Andrew,
Please review the following and provide your response in the progress notes.
Clinical Indicators:
Pt admitted with abdominal pain possibly gastroenteritis vs ischemic SB disease /Lactic Acidosis/ TESSIE
Documented per H&P,' SIRS picture suspect source is intraabdominal origin with Anion gap MA (16) suspect lactate acidosis ...'
Pt on IV Zosyn Q6
On Admission tmax 100.2, HR 112, Respirations 28
Please provide a diagnosis based on the above findings:
Sepsis-POA
- Systemic manifestations of infection, with 2 or more SIRS criteria which include:
- Fever >100.4 degrees F or hypothermia < 96.8 degrees F
- Leukocytosis - WBC > 12,000 or leukopenia - WBC < 4,000 or > 10% bands
- Tachycardia > 90 beats per minute
- Tachypnea - RR > 20 breaths per minute or PaCO2 , 32mmHg
Source: Merck Manual 2013
SIRS with Acute Organ Dysfunction -TESSIE
Gastroenteritis only
Other
Use of terms such as suspected, likely, concern for, or probable (associated with a specific diagnosis that is being evaluated, monitored, or treated as if it exists) are acceptable and can be coded in the inpatient setting, when documented at the
time of discharge.
Thank you,
Augusta Gee RN
CDI Specialist
[place] [facility]
Please use your independent medical judgment in providing your response.
--- NOTE | 2024-04-25 11:23 | PN.CDI ---
CDI
- -
CDI:
Physician Documentation Request
Admit Date: 04/24/24 06:06
Dear Doctor Andrew,
Please review the following and provide your response in the progress notes.
Clinical Indicators:
Pt admitted with abdominal pain possibly gastroenteritis vs ischemic SB disease /Lactic Acidosis/ TESSIE
Documented per ED, '.... patient now was noted to be moderately tachypneic, hypoxic requiring nasal cannula oxygen and noted to have some bibasilar rales. I am concerned for an element of acute CHF, iatrogenic from IV fluid's.Will check portable
chest x-ray ...Acute respiratory failure with hypoxia....
04/24/24
03:13 04/24/24
04:00 04/24/24
04:53
Pulse 112 108
Resp Rate 28
Nasal Cannula flow liters per minute 2
04/24/24
05:30 04/24/24
05:45 04/24/24
06:00
Pulse 108 106
Nasal Cannula flow liters per minute 6
04/24/24
08:02 04/24/24
08:30 04/24/24
09:00
Resp Rate 36
Nasal Cannula flow liters per minute 4 4
04/24/24
10:00 04/24/24
10:15 04/24/24
11:00
Resp Rate 32 31
Nasal Cannula flow liters per minute 4
Please update the status of Acute Hypoxic Respiratory Failure documented in ED:
Acute Hypoxic respiratory Failure - Resolved
Acute Hypoxic respiratory Failure - Ruled out
Other ( please specify)
Additional information for Respiratory Failure:
Recognized criteria for Respiratory Failure (Source: [employer] [facility] Jul 2013)
ABGs: (1 or more) Symptoms Please indicate type if known
1. p)2 <60 or RA SPO2 <91% on RA 1. Tachypnea, SOB, dyspnea Hypoxic
2. pCO2 50 and pH <7.35 2. Use of accessory muscles Hypercapnic
3. pO2 decrease of pCO2 increase by 3. Pallor or cyanosis Hypoxic and Hypercapnic
10 mmHg from baseline if known 4. Anxiety or restlessness Unable to determine
5. Unable to speak in full sentences
Supplemental O2 of > 40% (5LPM) Intubation is not required
Use of terms such as suspected, likely, concern for, or probable (associated with a specific diagnosis that is being evaluated, monitored, or treated as if it exists) are acceptable and can be coded in the inpatient setting, when documented at the
time of discharge.
Thank you,
Augusta Gee RN
CDI Specialist
[place] [facility]
Please use your independent medical judgment in providing your response.
[2024-04-25 11:27] LABS: Glucose - Point of Care 214 mg/dl (70-99)
[2024-04-25] MEDS: NOVOLOG FLEXPEN-LOW RESISTANCE 2 UNITS SC (11:48)
[2024-04-25 12:25] VITALS: BP 140/70
--- NOTE | 2024-04-25 14:15 | W.PN.HOSP.TC ---
Addendum entered and electronically signed by Madi Morales MD 04/26/24 07:53:
In response to CDI query:
Acute Hypoxic respiratory Failure - Resolved
Sepsis - POA - resolved
Addendum entered and electronically signed by Madi Morales MD 04/25/24 15:50:
I saw and evaluated the patient. I reviewed the resident�s note and agree with findings and plan as documented in the resident�s note.
Further comments as below
1. Acute diarrhea
Viral gastro-enteritis likely
-SB ischemia less likely as quick improvement in symptoms, LA trending down
-diarrhea has resolved w/o treatment and less likely bacterial in nautre.
-possible infection vs ischemic SB disease. if have further diarrhea episode - collect stool culture for bacterial culture
-on zosyn, maintain on empiric ciprofloxacin/flagyl
2. Lactic acidosis
- reason unclear, volume depletion? vs ischemia. monitor on IVF
3. Gastritis
- on CT a/p , also have cirrhosis by imaging standard , portal gastropathy vs gastritis possibility,
- GI need of EGD
4. Cirrhosis
- normal Plt count, f/u INR, LFt in morning. further testing per GI.
5. T2DM
- maintain on ISS
Original Note:
Today's Communication/Plan
-
Patient discharged on oral antibiotics with instructions to make an appointment with GI specialist in the outpatient setting.
Assessment / Plan
Assessment / Plan
74F with a history IDDM, hypothyroidism, breast cancer, HTN, GERD was at ER for evaluation of acute abdominal pain. Patient had a sudden onset of pain while she was eating dinner. The pain was localized to the mid abdomen and has lasted for 10 Hrs.
The pain has been constant and radiates to all four quadrants. The pain does not change with positioning and is associated with nausea and vomiting. Patient says that she does not have any constipation or diarrhea and that her stools have been soft
and formed, dark brown all day.
Plan:
Gastroenteritis only
-Empiric IV Zosyn, 3.375 gram in 50 mls @ 100 mls/hr, Q6 LOIS IV continued
-Lactic acidosis was trending down
-No leukocytosis- WBC 8.4 -> 11.0 -> 8.7 currently
-Afebrile with very rare spikes reaching 99F-100F
-GI Consulted, Input appreciated
-Patient can follow-up outpatient with Dr. Pink for upper endoscopy for possible gastric wall thickening.
-No stool culture needed as no diarrhea noted
-Patient switched to oral antibiotics and discharged. Ciprofloxacin 500mg BID 5 days, Metronidazole 250mg PO BID 5days
Insulin Dependent Diabetes
- Monitor Blood glucose levels
- Resume home diabetes control regimen. Resume Metformin at home.
Acute Dyspnea with O2
-resolved, no dyspnea throughout the day
Acute Hypoxic respiratory Failure - Ruled out
Suspected TESSIE-
-Resolved, Creatinine (1.0)
-No other electrolyte abnormalities
Elevated AST
-Follow up with GI specialist in outpatient setting
-Scarring of the liver noted on CT Scan Abdomen
Anticipated Discharge: Today
Subjective/Interval History
-
Date of Service: April 25, 2024
Objective Data
-
Labs:
Laboratory Results
04/25/24
07:15
WBC 8.7
Hgb 11.1 L
Hct 32.7 L
Plt Count 142 D
PT 16.7 H
INR 1.34
Sodium 137
Potassium 4.3
Chloride 106
Carbon Dioxide 23
BUN 16
Creatinine 1.0
Glucose 133 H
Calcium 9.7
Total Bilirubin 1.3
AST 51 H
ALT 29
Alkaline Phosphatase 105
Vital Signs:
Vital Signs
Temp Pulse Resp BP Pulse Ox
100.5 F H 100 16 139/74 95
04/25/24 07:37 04/25/24 07:37 04/25/24 07:37 04/25/24 07:37 04/25/24 07:37
I&O
04/24/24 04/25/24 04/26/24
06:59 06:59 06:59
Intake Total 1780 / 1780
Output Total 1450 / 1450
Balance 330 / 330
Physical Exam
-
General: Well Developed, Well Nourished and No Apparent Distress
Respiratory: Clear to Auscultation and Non Labored Respirations
Cardiac: Regular Rhythm and S1/S2
GI: Soft, Nontender, Normal Bowel Sounds and Distended
Musculoskeletal: No Clubbing, No Cyanosis and No Edema
Neuro: Awake, Alert, Oriented and AO x 3
Psych: Calm
Data Reviewed
-
CT Scan: Report Reviewed by me, Discussed with Physician, Discussed with Patient and Discussed with Family
Labs: Labs Reviewed by me, Discussed with Physician, Discussed with Patient and Discussed with Family
[2024-04-25] MEDS: LR IV (14:35)
--- NOTE | 2024-04-25 15:04 | W.DCSUMMARY ---
Discharge Summary
Discharge Data
Date of Admission: 04/24/24
Date of Discharge: 04/26/24
-
Pending Results: No
Hospital Course
74-year-old female with a history of insulin-dependent diabetes mellitus, breast cancer, hypertension, GERD was at the ER for evaluation of acute abdominal pain. Patient had sudden onset of pain when she was eating dinner localized to the mid
abdomen that had lasted for 10-hours. Pain was consistent start at the mid abdomen and radiated to all 4 quadrants of the abdomen. It did not change with positioning and was associated with nausea and vomiting. Patient complains that she had been
getting loose stools as well alongside this pain but would not call it diarrhea. Patient was afebrile and was admitted after getting a CT scan. CT scan did not show any ischemic bowel however it showed thickening of the wall of the stomach and
right colon. There is also small gallstone noted near noGB. GI was consulted and patient was started on empiric IV Zosyn the patient is acute dyspnea was treated with IV Lasix 20 mg once at the ER. Patient noted that she always has had low O2
levels when she is at a hospital. Patient's diabetes was continued to be manage with 50% of Levemir and her metformin was held. Patient was given IV fluids due to suspected element of TESSIE and her valsartan and hydrochlorothiazide were held.
Patient was downgraded to telemetry from the ICU as her symptoms had improved with continued monitoring her lactic acidosis as the levels were trending downwards. If there were any further diarrheal episodes stool samples were to be collected to
check for any organisms. GI was consulted to address the findings on the CT scan that showed thickening of the wall of the stomach and right colon. GI specialist noted that patient could follow-up outpatient for upper endoscopy with Dr. Woodward if
there is no further nausea vomiting or pain. Patient's electrolytes were improved throughout the whole day and her element of TESSIE was resolved.
Patient had no adverse events over the night except for some mild abdominal pain which was resolved in the morning after medication. Patient had no noted nausea or vomiting or any other abdominal pain. Patient has continued to get antibiotic for
potential bacterial gastroenteritis and was switched to oral antibiotics ciprofloxacin and metronidazole upon discharge. Patient was able to tolerate solid foods and was discharged from the hospital with a prescription for oral antibiotics.
Discharge Plan
-
Patient Disposition: Home (Routine Discharge)
Discharge Diagnosis/Procedures: Gastroenteritis from unknown etiology
Diet: Diabetic, Carb Controlled
Activity: No restrictions
Driving Restrictions: As prior to admission
Bathing Restrictions: None
Activity Restrictions/Additional Instructions:
See GI specialist after discharge
Referrals:
Felix Torres MD [Family Provider] -
Yun Pink DO [Active] -
Additional Discharge Medication Instructions: Take Ciprofloxacin 500mg twice a day for 5 days. Take Metronidazole 250mg twice a day for 5 days
Prescriptions:
New
ciprofloxacin HCl 500 mg tablet
500 mg PO BID 5 Days Qty: 10 0RF
metronidazole 250 mg tablet
250 mg PO BID 5 Days Qty: 10 0RF
Continued
alprazolam 0.5 MG tablet
1 mg PO HS
amlodipine 10 MG tablet
10 mg PO QPM
Enbrel 50 MG/ML syringe
50 mg SQ TU
nebivolol [Bystolic] 10 MG tablet
10 mg PO DAILY
pantoprazole 40 mg Tablet,Delayed Release (Dr/Ec)
40 mg PO DAILY
insulin aspart U-100 [Novolog FlexPen U-100 Insulin] 100 unit/mL (3 mL) Insulin Pen
8 sliding scale dose SC AC
Soliqua 100/33 100 unit-33 mcg/mL Insulin Pen
48 unit SC HS
aspirin 81 mg Tablet,Delayed Release (Dr/Ec)
81 mg PO DAILY
clopidogrel [Plavix] 75 mg Tablet
75 mg PO DAILY
sulfamethoxazole-trimethoprim [Bactrim DS] 800-160 mg Tablet
1 tab PO BID
acetaminophen 650 mg Tablet Extended Release
650 mg PO TID
zinc sulfate 50 mg zinc (220 mg) Tablet
50 mg PO DAILY
hydrochlorothiazide 25 mg Tablet
25 mg PO DAILY
gabapentin 100 mg Capsule
200 mg PO BID
valsartan 160 mg Tablet
160 mg PO QPM
magnesium oxide 400 mg magnesium Tablet
400 mg PO DAILY
levothyroxine [Synthroid] 88 mcg Tablet
88 mcg PO DAILY
metformin 500 mg Tablet Extended Release 24 Hr
500 mg PO BID
Discharge Orders:
Discharge Patient (As Directed); Ordered 04/25/24
Ordered By: Escobar Goins
Discharge Date and Time
Discharge Date/Time: 04/25/24 14:48
Print Language: UKRAINIAN
== END 2024-04-25 14:48 | disposition home or self-care (01) | DRG 871 ==
LOC: 4 WEST ACU 06:06
PROVIDERS: ADMITTING PHYSICIAN Internal Medicine; ATTENDING PHYSICIAN Hospitalist; CONSULT PHYSICIAN Internal Medicine Gastroenterology; EMERGENCY PHYSICIAN Emergency Medicine; FAMILY PHYSICIAN Family Medicine
DX: A41.9 Sepsis, unspecified organism (principal); J96.01 Acute respiratory failure with hypoxia; N17.9 Acute kidney failure, unspecified; E87.20 Acidosis, unspecified; R18.8 Other ascites; K52.9 Noninfective gastroenteritis and colitis, unspecified; K29.00 Acute gastritis without bleeding; K80.20 Calculus of gallbladder without cholecystitis without obstruction; E11.65 Type 2 diabetes mellitus with hyperglycemia; Z79.4 Long term (current) use of insulin
CPT/HCPCS: 71045; 74177; 80053; 81003; 82962; 83036; 83605; 83690; 83880; 85025; 85027; 85610; 93005; 96361; 96365; 96375; 96376; 99291; Q9967

== ENCOUNTER → 2024-05-16 06:15 | Day surgery (SDC) | payer BC, SELFPAY ==
[2024-05-16 08:04] LABS: Glucose - Point of Care 146 mg/dl (70-99)
== END ==
LOC: GI 06:15
PROVIDERS: ATTENDING PHYSICIAN Internal Medicine
DX: R93.3 Abnormal findings on diagnostic imaging of other parts of digestive tract (principal); R63.0 Anorexia; R63.4 Abnormal weight loss; R11.2 Nausea with vomiting, unspecified; K22.2 Esophageal obstruction; K44.9 Diaphragmatic hernia without obstruction or gangrene; K31.89 Other diseases of stomach and duodenum; K31.7 Polyp of stomach and duodenum; K22.4 Dyskinesia of esophagus; K29.60 Other gastritis without bleeding; K29.50 Unspecified chronic gastritis without bleeding
CPT/HCPCS: 43239; 88305; 82962; 88342

== ENCOUNTER → 2024-06-06 10:14 | Outpatient (REF) | payer BC, SELFPAY | LOC: RAD 10:14 | PROVIDERS: ATTENDING PHYSICIAN Internal Medicine | DX: M81.0 Age-related osteoporosis without current pathological fracture (principal) | CPT/HCPCS: 77080 ==